=== PATIENT | female | born 1940 | race Caucasian/White ===

== ENCOUNTER 2016-05-06 15:30 | Inpatient (IN) | payer MEDICARE, OTHER ==
[~2016-05-06] VITALS: Ht 160 cm; Wt 61.2 kg
--- NOTE | ~2016-05-06 | NDGEN ---
PATIENT'S NAME: DAVE [facility] AGE: 75 Y [address] ROOM: [place] [address] LOCATION: GPCU ADMIT DATE: 05/06/2016 Neurodiagnostics DISCHARGE DATE: FAMILY PHYSICIAN: Lali Ellington MD ATTENDING PHYSICIAN: MAXIM WHARTON V PROCEDURE: ELECTROENCEPHALOGRAM DATE OF PROCEDURE: 05/07/2016 TEST: TECH: CLINICAL DIAGNOSIS: DURATION OF EE minutes. REASON FOR EEG: Mental status changes. CLINICAL HISTORY: The patient is a 75-year-old female who had been previously healthy when she suddenly had an episode of nausea and vomiting and subsequently became unresponsive. In spite of complete workup, no clear etiology was found. EEG FINDINGS: The patient is lethargic for the entire duration of the EEG. The EEG consists primarily of low-voltage background. The findings on the EEG are somewhat limited with excessive movement/EMG artifact. In places where cortical rhythms were clearly appreciated, a background of about 7 Hz was achieved with maximum activation. Activation procedures included photic stimulation between 3 to 30 Hz which did not show any abnormalities. CLASSIFICATION: Abnormal one. Awake, drowsy, 10/20 scalp electrodes. Background slow. IMPRESSION: This EEG shows evidence of mild to moderately severe diffuse encephalopathy. No epileptiform discharges or EEG seizures were seen during this recording. JACOB PARKS MD NANO/modl PATIENT'S NAME: UMM ACOSTA [facility] AGE: 75 Y [address] ROOM: [place] [address] LOCATION: GPCU ADMIT DATE: 05/06/2016 Neurodiagnostics DISCHARGE DATE: FAMILY PHYSICIAN: Lali Ellington MD ATTENDING PHYSICIAN: MAXIM WHARTON V /[id number] dtt: 05/10/16 0622 , JACOB PARKS dtd: 05/07/16 1524
--- NOTE | ~2016-05-06 | HP ---
PATIENT'S NAME: UMM ACOSTA [facility] AGE: 75 Y [address] ROOM: [place] [address] LOCATION: [facility] ADMIT DATE: 05/06/2016 History & Physical DISCHARGE DATE: FAMILY PHYSICIAN: Lali Ellington MD ATTENDING PHYSICIAN: MAXIM WHARTON V DATE OF SERVICE: CHIEF COMPLAINT: Unresponsive episode. HISTORY OF PRESENT ILLNESS: The patient is a previously healthy 75-year-old female. The history is provided by the transferring provider at [place] as well as by her friends. She does not have any significant past medical history aside from two different thyroid surgeries and taking thyroid supplementation. Today, she was doing well when suddenly she was witnessed to have had an episode of nausea, vomiting, and subsequently became unresponsive. Paramedics were called and she was transferred to the hospital in [place]. There the patient had a fairly detailed workup which included a CAT scan of her head, EKG, cardiac enzymes, CBC, CMP, and urine studies all of which remained normal. However, per my discussion with the provider in [place], the patient's Shannan Coma Scale was a 6 with very little purposeful movement. She was intubated for airway protection and flew to [facility]. At this point, she is intubated, not on any sedation, but she was sedated quite recently and she is not overbreathing the vent. REVIEW OF SYSTEMS: This cannot be obtained due to encephalopathy. PAST MEDICAL HISTORY: As reported by the patient's friend is that of a recent diagnosis of a rotator cuff tear. Also, history of hypothyroidism. SOCIAL HISTORY: Negative for any toxic habits and her friend assure me that she is extremely active for her age. FAMILY HISTORY: Unknown due to encephalopathy. CURRENT MEDICATIONS: Include: Thyroid hormone. PATIENT'S NAME: UMM ACOSTA [facility] AGE: 75 Y [address] ROOM: [place] [address] LOCATION: [facility] ADMIT DATE: 05/06/2016 History & Physical DISCHARGE DATE: FAMILY PHYSICIAN: Lali Ellington MD ATTENDING PHYSICIAN: MAXIM WHARTON V PAST SURGICAL HISTORY: Unknown due to encephalopathy. PHYSICAL EXAMINATION: VITAL SIGNS: At this point, her blood pressure is 134/74, heart rate is in the 80s, saturating 97% on 40% FiO2, and respirations are 12 which is what the ventilator set at. GENERAL: Appears well-developed, well-nourished elderly female and not really responsive to noxious stimuli. NEUROLOGICAL: Cannot be conducted due to intubation. HEENT: Eye exam shows pupils are 2 mm and nonresponsive. ENT exam reveals no stridor. Mucous membranes are moist. LYMPHATIC: Shows no cervical lymphadenopathy. ENDOCRINE: Shows no thyromegaly. LUNGS: Clear to auscultation. HEART: Rate is regular. No appreciable murmurs, gallops, or rubs. GASTROINTESTINAL: Significant for a slightly distended abdomen with nearly absent bowel sounds. GENITOURINARY: Shows no costovertebral angle tenderness and a Lai catheter draining clear urine. VASCULAR: Reveals 2+ pedal pulses. SKIN: Warm and dry. PSYCHIATRIC: Cannot be assessed. LABORATORY DATA AND IMAGING STUDIES: Review of all studies sent in from outside facility is remarkably normal. ASSESSMENT AND PLAN: This is a 75-year-old female, who will be admitted with acute encephalopathy of unknown origin. Individual problems to be addressed as follows: 1. Acute encephalopathy of unknown origin. At this point, we will await for the patient to wake up as fentanyl and ketamine that she received for intubation were out. We will reassess her neurological status. We will likely need to do an MRI of her brain to rule out other etiologies for her presentation. We will also cycle her cardiac enzymes. 2. History of thyroid disease. We will check her TSH and TFTs. 3. Diminished bowel sounds. We will obtain a flat film of the abdomen and check her lactate to rule out a possible ischemic event in her abdomen. 4. Airway support. We will continue the patient on ventilator. 5. Additional management depend on clinical course. Critical care time dedicated to the care of this patient is 60 minutes. PATIENT'S NAME: UMM ACOSTA [facility] AGE: 75 Y [address] ROOM: [place] [address] LOCATION: [facility] ADMIT DATE: 05/06/2016 History & Physical DISCHARGE DATE: FAMILY PHYSICIAN: Lali Ellington MD ATTENDING PHYSICIAN: MAXIM WHARTON MD AVK/modl /[id number] D: [id number] T: [id number] HISTORY & PHYSICAL
--- NOTE | ~2016-05-06 | CON ---
PATIENT'S NAME: UMM ACOSTA [facility] AGE: 75 Y [address] ROOM: [id number] [place], [place] [address] LOCATION: GPCU ADMIT DATE: 05/06/2016 Consultation DISCHARGE DATE: FAMILY PHYSICIAN: Lali Ellington MD ATTENDING PHYSICIAN: MAXIM WHARTON V DATE OF CONSULTATION: 05/07/2016 DATE AND TIME: 05/07/2016 at 11:30 a.m. CHIEF COMPLAINT: Unresponsive episode. HISTORY OF PRESENT ILLNESS: This is a 75-year-old female with few medical problems. The transferring provider at [place] gave a medical history to Dr. Givens, who informed me of the consult. She really does not have any significant medical history other than thyroid surgeries and she has a recent right rotator cuff injury that she is not driving because of. Yesterday, she was doing fine, she was at her place of work, and she was doing some paperwork when she complained of not being well. This is really the last thing she remembers. She was noted to have an episode of nausea, vomiting, and then became unresponsive. Paramedics were called and she went to the hospital in [place]. She had a significant workup including a CAT scan of her head, EKG, cardiac enzymes, CBC, CMP, and urine studies, all of which were normal. She then was intubated and flown to our hospital. Apparently, the patient's Reddell Coma Scale was 6 in [place]. When she got to our hospital, she was not overbreathing the vent, however, she was given fentanyl and ketamine. After that, she did wake up and was extubated and sent to the floor and we are seeing her on the PCU unit. She is pleasant and cooperative and does not remember anything except feeling nauseous before she passed out. They did have to tell her where she was, but since that time she has had good cognition. She states she is not quite back to baseline as far as remembering things. She has never been , but she is surrounded by friends at the bedside who were also helpful in the history. REVIEW OF SYSTEMS: This patient denies any recent illnesses. Denies any chest pain or palpitations. Denies travel. Denies anything that has been out of the ordinary in the past few weeks. She is on Maxalt for migraines, but has not taken that in over a year. The only problem she has had is a rotator cuff injury to the right shoulder, which she is not driving and her range of motion is somewhat limited. PATIENT'S NAME: UMM ACOSTA [facility] AGE: 75 Y [address] ROOM: [address] [address] LOCATION: GPCU ADMIT DATE: 05/06/2016 Consultation DISCHARGE DATE: FAMILY PHYSICIAN: Lali Ellington MD ATTENDING PHYSICIAN: MAXIM WHARTON V PAST MEDICAL HISTORY: Rotator cuff tear and hypothyroidism. PAST SURGICAL HISTORY: Total hysterectomy. SOCIAL HISTORY: Negative for any toxic habits. She is active for her age and has never been . FAMILY HISTORY: Unknown to the patient. MEDICATIONS: On the chart and reviewed by me. PHYSICAL EXAMINATION: VITAL SIGNS: Her blood pressure is 122/72, heart rate is 78, she is saturating 98% on room air, and respirations are 18. GENERAL: She appears well developed, well nourished, elderly female, in no acute distress. Pleasant and interactive with the environment. NEUROLOGIC: Pupils are equal, round, and reactive to light and accommodation. Cranial nerves II through XII intact. No focal deficits noted. Motor strength 3/5 on the right arm due to the injury, otherwise 5/5 on other extremities. Sensation intact to light touch and temperature. Reflexes intact. I did not assess her gait, however, PT was coming in to get her up. NIH stroke scale was 0. HEENT: Her head is normocephalic and atraumatic. LYMPHATIC: No cervical lymphadenopathy. NECK: No bruits appreciated. LUNGS: Clear to auscultation. HEART: Heart rate regular with no murmurs, gallops, or rubs. GI: Flat abdomen with hypoactive bowel sounds. VASCULAR: She has 2+ pedal pulses. SKIN: Warm and dry. PSYCHIATRIC: She needs eye contact and is a good historian. LABORATORY DATA AND IMAGING: Studies were reviewed from the outside facility and all were unremarkable. MRI at our facility is unremarkable. ASSESSMENT AND PLAN: This is a previously healthy 75-year-old female, who was admitted to the hospital with unresponsiveness. It is appropriate to consider seizure in the differential diagnosis. We will get an EEG. If this is negative for any post- PATIENT'S NAME: DAVE, UMM M [facility] AGE: 75 Y [address] ROOM: [address] [address] [facility] ADMIT DATE: 05/06/2016 Consultation DISCHARGE DATE: FAMILY PHYSICIAN: Lali Ellington MD ATTENDING PHYSICIAN: MAXIM WHARTON V seizure signal, we will not start the patient on an AED. As far as her differential of acute encephalopathy, the patient is back to baseline. Unknown cause of this encephalopathy. May need further neurological followup post discharge. Our plan will be to wait for the EEG results and then make a decision on the AED, but she should be fine for discharge from a neurological standpoint. Thank you for the opportunity to participate in this patient's care. JUAN ALBERTO MILLER APRN FOR [facility] MD PP/modl /[id number] d: 05/07/162016 t: 05/11/16 1642, CONSULTATION REPORT
--- NOTE | ~2016-05-06 | DS ---
PATIENT'S NAME: UMM ACOSTA [facility] AGE: 75 Y [address] ROOM: [place] [address] LOCATION: GPCU ADMIT DATE: 05/06/2016 Discharge Summary DISCHARGE DATE: 05/08/2016 FAMILY PHYSICIAN: Lali Ellington MD ATTENDING PHYSICIAN: Dom Edmond V PRIMARY DIAGNOSES: 1. Syncope, vasovagal. 2. Acute encephalopathy, metabolic. 3. Essential hypertension. 4. Generalized anxiety. 5. Hypothyroidism. 6. Postmenopausal. 7. Migraine headaches. 8. Dysuria. 9. Hypokalemia. OPERATIONS AND PROCEDURES: MRI scan of the brain was obtained on 05/06/2016, unremarkable. CT angiogram was obtained on 05/06/2016, also unremarkable. EEG was performed on 05/07/2016, negative for any seizures. Diffuse slowing was noted, which is nonspecific. HISTORY OF PRESENTING ILLNESS AND REASON FOR ADMISSION: Please refer to the H and P dictated on 05/06/2016. HOSPITAL COURSE: The patient was admitted to the hospital as noted above with a presumptive diagnosis of syncope and unresponsiveness. She had been intubated prior to her transfer here. There was a fairly extensive workup at the outlying facility which interestingly was fairly benign. The reasons for intubation were not entirely clear. She was extubated after her arrival here. She was awake, interactive, and did not show any focalizing symptoms. Differential diagnosis remained relatively broad at that point. A neurology workup ensued including MRI scan and CT angiography as described above. This was negative for any evidence of acute stroke. It was suspected that she may have had a toxic ingestion, although this was not able to be proven. She did not show any other symptoms or episodes over the course of her hospital stay here. She did demonstrate significant generalized anxiety and worry about her general condition. Her blood pressures were elevated, but this was felt to be secondary to her anxious state. She was ambulated in the hallways and was felt to be completely independent. Teleneurology consultation was requested. EEG was performed as described above, and the findings were nonspecific. It was suggested to maintain attention to healthy lifestyle habits and minimize PATIENT'S NAME: UMM ACOSTA [facility] AGE: 75 Y [address] ROOM: [place] [address] [facility] ADMIT DATE: 05/06/2016 Discharge Summary DISCHARGE DATE: 05/08/2016 FAMILY PHYSICIAN: Lali Ellington MD ATTENDING PHYSICIAN: Dom Edmond V her pharmacologic regimen. By the third hospital day, it was felt she would be stable enough for discharge to home with plans for close clinical followup with her primary care provider as well as close clinical followup regarding her blood pressures. DISCHARGE INSTRUCTIONS: DIET: 2 g sodium per day as tolerated. ACTIVITY: As tolerated. MEDICATIONS: 1. Acetaminophen 500 mg p.o. q.6 hours p.r.n. pain or fever. 2. Xalatan ophthalmic drops one drop each eye every day. 3. Levothyroxine 88 mcg p.o. daily. 4. Maxalt 10 mg p.o. daily p.r.n. headache. 5. Aspirin 81 mg p.o. daily. 6. Multivitamin daily. 7. Zantac 75 mg p.o. q.h.s. FOLLOWUP: She will follow up with primary care provider, Lali Ellington, in 3 to 5 days. CONDITION ON DISCHARGE: Good. Total time spent on discharge process is 45 minutes. MD KATIE CONTRERAS/janina /[id number] d: 05/08/16 1131 t: 05/19/16 2144, DISCHARGE SUMMARY
--- NOTE | 2016-05-06 17:02 | NUR ---
Pt arrived to room via flight 1635. Placed in A/C mode, TV 450, RR 12, P5. Initial ETCO2 29, 7.5 ETT secured at 23 Teeth with ETAD. Bilateral lung sounds present, clear. Spont cough from Pt, no sxn. Will continue to monitor and wean as tolerated
[2016-05-06] MEDS ORDERED: ESTRACE1 MG PO (17:41)
[2016-05-06] MEDS ORDERED: MAXALT10 MG PO (17:42)
[2016-05-06] MEDS ORDERED: XALATAN2.5 ML OPHTH (17:43)
[2016-05-06] MEDS ORDERED: LEVOTHROID (SY88 MCG PO (17:43)
[2016-05-06] MEDS ORDERED: ASPIRIN LO-DOSE81 MG PO (17:46)
[2016-05-06] MEDS ORDERED: NORCO 5-325 TA1 EACH PO (17:46)
[2016-05-06] MEDS ORDERED: THERA-VITE W/ B1 TAB PO (17:46)
[2016-05-06] MEDS ORDERED: PRESERVISION A1 EACH PO (17:47)
[2016-05-06] MEDS ORDERED: ZANTAC 7575 MG PO (17:47)
[2016-05-06 18:29] LABS: BASOPHIL % 0.3 %; EOSINOPHIL % 0.3 %; HEMATOCRIT 37.8 % (33.0-46.0); HEMOGLOBIN 12.6 g/dL (10.0-15.0); IMMATURE GRANULOCYTE % 0.3 %; LYMPHOCYTE # 0.9 K/uL (0.8-4.0); LYMPHOCYTE % 8.8 %; MCH 31.5 pg (27.0-34.0); MCHC 33.3 gm/dL (32.0-36.5); MCV 94.5 fl (83.0-98.0); MONOCYTE # 0.3 K/uL (0.0-1.0); MONOCYTE % 3.3 %; MPV 8.4 fl (9.4-12.4); NEUTROPHIL # (ANC) 8.8 K/uL (1.8-7.8); NRBC % 0 /100WBC (0-0.00); PLATELET COUNT 230 K/uL (150-450); RDW-CV 12.8 % (11.9-14.6); WBC 10.1 K/uL (4.0-11.0)
[2016-05-06 18:51] LABS: ALBUMIN 2.9 gm/dL (3.5-5.0); ALK PHOS 69 IU/L (33-138); ALT 14 IU/L (12-78); ANION GAP 13.7 (10.0-19.0); AST 15 IU/L (10-40); BLOOD UREA NITROGEN 14 mg/dL (6-24); CHLORIDE 110 mMol/L (96-110); CO2 21 mMol/L (22-32); CREATININE 0.6 mg/dL (0.5-1.1); ESTIMATED GFR (MDRD EQUATION) > 60; MAGNESIUM 1.9 mg/dL (1.3-2.6); POTASSIUM 3.7 mMol/L (3.7-5.1); SODIUM 141 mMol/L (135-145); TOTAL BILIRUBIN 0.4 mg/dL (0.0-1.5); TOTAL PROTEIN 6.2 g/dL (6.0-8.4)
[2016-05-06 18:52] LABS: CALCIUM 7.3 mg/dL (8.5-10.5); CPK 44 IU/L (21-215); PHOSPHORUS 1.7 mg/dL (2.5-4.9)
--- NOTE | 2016-05-07 02:23 | NUR ---
Patient extubated at 23:13. VC was 2500, NIF was -53. Patient currently on 1L O2 for O2 sats of 98%
--- NOTE | 2016-05-07 06:12 | NUR ---
Significant Event: SEDATED AT BEGINNING OF SHIFT. BECAME MORE AWAKE. EXTUBATED AT 2318. PATIENT IS A/O. FORGETFUL OF EVENTS OF YESTERDAY AND OVERNIGHT. FORGETFUL OF PLACE AT TIMES. FOLLOWS COMMANDS. HAS DIFFICULTY FINDING WORDS AT TIMES. EQUAL STRENGTH. CTA/MRI NEGATIVE. HR 60-90'S. SBP UP TO 160'S PRIOR TO EXTUBATED. DOWN TO 90-110'S AFTER. WEANED TO RA. LUNG SOUNDS C/D. HAS OCCASIONAL COUGH SINCE EXTUBATION. TOLERATING WATER. NO BM OVERNIGHT. STAPLETON HAD 2200ML OUT. BATH COMPLETE. C/O PAIN IN R) SHOULDER X1, GAVE MORPHINE 2MG IVP X1. TRANSFERED TO PCU ROOM 6326 AT 0546. WILL UPDATE EMERGENCY CONTACTS. Follow up: CONTINUE TO MONITOR.
--- NOTE | 2016-05-07 06:56 | NUR ---
0546: TRANSFERED PATIENT TO ROOM 6326 VIA WHEELECHAIR. PATIENT TOLERATED WELL. 0640: NOTIFIED LINDEN, PATIENT'S COUSIN OF TRANSFER, GAVE ROOM NUMBER AND UPDATED ON EVENTS OF THE NIGHT. ANSWERED QUESTIONS. GAVE PCU NURSES STATION NUMBER, ROOM PHONE NUMBER. ALSO ASKED WHEREABOUTS OF PATIENT'S BELONGINGS. LINDEN STATES THAT SHE HAS HER CELL PHONE, WALLET AND GLASSES, HOWEVER HER CLOTHES WERE CUT OFF AT THE [facility]. 0650: NOTIFIED HAKAN, PATIENT'S FRIEND, OF TRANSFER, GAVE ROOM NUMBER AND UPDATED HER ON EVENTS OF THE NIGHT. ANSWERED QUESTIONS.
[2016-05-07 11:56] LABS: CPK 50 IU/L (21-215)
--- NOTE | 2016-05-07 14:31 | NUR ---
Introduced self and role of care management to pt and her friends. Pt is back to baseline and up walking on own and still waiting on some test results. She states she lives alone in [place] but has numerous friends. The two present one was from [facility] and another from [place]. Pt stats another friend is coming from [place]. She plans on home and denies the need for hhc. She only takes 2 pills and her house is set up for her. 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 Her friends tell me she is very outgoing and knows people from everywhere. AT this time plan is home but did mention to friends maybe about [facility].
--- NOTE | 2016-05-07 14:49 | NUR ---
Significant Event: A/O. VSS on RA. Denies pain. Hollingsworth dc'd at 1415, no void yet. Urine was light pink tinged prior to dc of hollingsworth. Neuro checks WNL. Up with 1 assist. No episodes of dizziness or lightheadedness reported. Family at bedside. Neuro consult and EEG ordered. Follow up: possible dismissal tomorrow
[2016-05-07 17:15] LABS: CPK 61 IU/L (21-215)
[2016-05-07 23:36] LABS: CPK 55 IU/L (21-215)
--- NOTE | 2016-05-08 04:34 | NUR ---
Significant Event: Pt A&Ox3. BP's have been running high all night. PRN BP meds available. Pt currently taking no BP medications. Pt's hollingsworth was pulled 05/07 @ 1415 and has voided since. Urine still remains light pink tinged. Pt states there is some burning with urination. Up w/ SBA to BR. No episodes of dizziness/lightheadedness complaints overnight. Possible dismissal today? Follow up: UA to determine if UTI present.
[2016-05-08 05:30] LABS: BASOPHIL % 0.4 %; EOSINOPHIL # 0.3 K/uL (0.0-0.5); EOSINOPHIL % 2.9 %; HEMOGLOBIN 12.4 g/dL (10.0-15.0); IMMATURE GRANULOCYTE % 0.3 %; LYMPHOCYTE # 1.2 K/uL (0.8-4.0); LYMPHOCYTE % 11.9 %; MCH 31.8 pg (27.0-34.0); MCHC 33.5 gm/dL (32.0-36.5); MCV 94.9 fl (83.0-98.0); MONOCYTE # 0.7 K/uL (0.0-1.0); MONOCYTE % 6.6 %; NEUTROPHIL # (ANC) 8.1 K/uL (1.8-7.8); NEUTROPHIL % 77.9 %; NRBC % 0 /100WBC (0-0.00); PLATELET COUNT 282 K/uL (150-450); RDW-CV 13.4 % (11.9-14.6); WBC 10.4 K/uL (4.0-11.0)
[2016-05-08 05:42] LABS: ALBUMIN 2.9 gm/dL (3.5-5.0); ANION GAP 13.3 (10.0-19.0); BLOOD UREA NITROGEN 9 mg/dL (6-24); CALCIUM 7.8 mg/dL (8.5-10.5); CHLORIDE 109 mMol/L (96-110); CO2 24 mMol/L (22-32); CREATININE 0.8 mg/dL (0.5-1.1); ESTIMATED GFR (MDRD EQUATION) > 60; MAGNESIUM 2.1 mg/dL (1.3-2.6); POTASSIUM 3.3 mMol/L (3.7-5.1); SODIUM 143 mMol/L (135-145)
[2016-05-08 05:44] LABS: PHOSPHORUS 1.9 mg/dL (2.5-4.9)
[2016-05-08 11:05] LABS: BILIRUBIN URINE NEGATIVE (NEGATIVE); BLOOD URINE 250 /UL (NEGATIVE); COLOR URINE STRAW (YELLOW); GLUCOSE URINE NEGATIVE (NEGATIVE); KETONE URINE NEGATIVE (NEGATIVE); LEUKOCYTES URINE 500 /UL (NEGATIVE); NITRITE URINE NEGATIVE (NEGATIVE); PROTEIN URINE NEGATIVE (NEGATIVE); TURBIDITY URINE 1+ (CLEAR); UROBILINOGEN URINE NORMAL (NORMAL)
[2016-05-08 11:12] LABS: BACTERIA URINE FEW (NEGATIVE); EPITHELIAL URINE 0-2 #/HPF (NEGATIVE); WBC URINE 20-50 #/HPF (NEGATIVE)
[2016-05-08] MEDS ORDERED: TYLENOL EXTRA500 MG PO (12:58)
[2016-05-08] MEDS ORDERED: CIPRO250 MG PO (13:50)
--- NOTE | 2016-05-08 14:44 | NUR ---
PATIENT DISMISSED TO HOME PER PRIVATE AUTO W/ FAMILY. PATIENT TRANSFERED TO CAR PER W/C BY NURSE AID. LAST BP 179/94, DR NAVAS NOTIFIED OF BP W/ NO NEW ORDERS GIVEN. DR NAVAS ALSO NOTIFIED OF UA RESULTS, ORDER FOR MEDICATION ADDED TO DISMISSAL ORDERS. PATIENT TRANSFERED W/ STAND BY ASSIST.
== END 2016-05-08 14:40 | disposition disaster alternative care site (69) | DRG 312 ==
LOC: EDBD 15:30 → GPCU 16:28 → GICU 16:28 → GPCU 05-07 05:30
PROVIDERS: Family Medicine; ADMIT Internal Medicine
DX: R55 Syncope and collapse (principal); G93.40 Encephalopathy, unspecified; G43.909 Migraine, unspecified, not intractable, without status migrainosus; J02.9 Acute pharyngitis, unspecified; M19.011 Primary osteoarthritis, right shoulder; F41.1 Generalized anxiety disorder; I10 Essential (primary) hypertension; E03.9 Hypothyroidism, unspecified; E87.6 Hypokalemia; Z78.0 Asymptomatic menopausal state; Z78.1 Physical restraint status; Z79.82 Long term (current) use of aspirin
CPT/HCPCS: C9113; J0360; J2250; J2270; J2405; J7030; Q9967